=== PATIENT | female | born 1945 | race Caucasian/White ===

== ENCOUNTER 2024-08-13 07:10 | Emergency (ER) | payer OTHER, MEDICARE ==
[2024-08-13 07:25] VITALS: RESP 16; BMI 30.7
[2024-08-13 09:56] LABS: HEMATOCRIT 35.2 % (32.4-45.2); HEMOGLOBIN 11.5 G/dL (10.7-15.3); MCH 31.8 pg (25.7-33.7); MCHC 32.6 g/dl (32.0-36.0); MEAN CELL VOLUME 97.4 fl (80-96); PLATELET COUNT 134.2 10^3/uL (134-434); RBC 3.61 10^6/uL (3.60-5.2); RDW 15.1 % (11.6-15.6); WHITE BLOOD COUNT 9.8 10^3/uL (4.0-10.8)
[2024-08-13 10:05] LABS: ALBUMIN 3.9 g/dl (3.4-5.0); BILIRUBIN,TOTAL 1.6 mg/dl (0.2-1); CALCIUM 9.1 mg/dl (8.5-10.1); CREATININE 1.3 mg/dl (0.6-1.3); TOT PROT 6.5 g/dl (6.4-8.2)
[2024-08-13 10:07] LABS: POTASSIUM 5.1 mmol/L (3.5-5.1)
[2024-08-13 10:31] LABS: PLATELET ESTIMATE ADEQUATE
[2024-08-13 10:58] VITALS: BP 96/68; PULSE 82; TEMP 98.2
[2024-08-13] MEDS: DALBAVANCIN HCL 1,500 MG in DEXTROSE 5%-WATER - 500 ML IVPB ONE (10:58)
[2024-08-13 12:58] LABS: N-TERMINAL BNP 4015.1 pg/ml (5-450)
== END 2024-08-13 13:37 | disposition home or self-care (01) ==
LOC: FER 07:10
DX: M79.89 Other specified soft tissue disorders (principal); M25.572 Pain in left ankle and joints of left foot
CPT/HCPCS: 36415; 80053; 83880; 85025; 93971-TC; 96365; 99285-25; J0875